=== PATIENT | female | born 1985 | race Caucasian/White ===

== ENCOUNTER 2024-04-02 20:55 | Emergency (ER) | payer BC, SELFPAY ==
[2024-04-02 20:58] VITALS: BP 129/76
[2024-04-02 21:14] LABS: % Basophils 0.6 % (0-2); % Eosinophils 1.6 % (0-6); % Immature Granulocytes 0.3 % (0-0.5); % Lymphocytes 38.6 % (20.5-51.1); % Monocytes 6.2 % (1.7-9.3); % Neutrophils 52.7 % (42.2-75.2); Absolute Basophils 0.1 10^3/uL (0-0.2); Absolute Eosinophils 0.2 10^3/uL (0-0.7); Absolute Lymphocytes 3.6 10^3/uL (1.2-3.4); Absolute Monocytes 0.6 10^3/uL (0.1-0.6); Hematocrit 36.7 % (37.0-47.0); Hemoglobin 12.5 g/dL (12.0-16.0); Mean Corp Hgb Conc. 34.1 g/dL (33.0-37.0); Mean Corpuscular Hgb 29.2 pg (27.0-31.0); Mean Corpuscular Volume 85.7 fL (81.0-99.0); Mean Platelet Volume 9.9 fL (7.4-10.4); Nucleated Red Blood Cells % 0 %; Platelet Count 274 10^3/uL (130-400); Red Blood Cell Count 4.28 10^6/uL (4.20-5.40); Red Cell Dist. Width 13.2 % (11.5-14.5); White Blood Cell Count 9.4 10^3/uL (4.8-10.8)
[2024-04-02 21:32] LABS: ALT (SGPT) 24 U/L (0-35); AST (SGOT) 24 U/L (14-36); Albumin 4.7 g/dl (3.5-5.0); Alkaline Phosphatase 49 U/L (38-126); Blood Urea Nitrogen 12 mg/dl (7-17); Calcium 9.9 mg/dl (8.4-10.2); Carbon Dioxide 26 mmol/L (22-30); Chloride 102 mmol/L (98-107); Glucose 127 mg/dl (70-99); Potassium 3.9 mmol/L (3.5-5.1); Sodium 140 mmol/L (135-145); Total Bilirubin 0.6 mg/dl (0.2-1.3); Total Protein 7.2 g/dl (6.3-8.2); eGFR > 60.00
[2024-04-02 21:39] VITALS: BP 105/71
[2024-04-02 21:42] VITALS: BMI 22.4
[2024-04-02 22:00] VITALS: BP 115/83
--- NOTE | 2024-04-02 22:58 | ED.GENMED ---
History of Present Illness
<Ines Gomez MD, Resident - Last Filed: 04/03/24 02:37>
General
Chief Complaint: Dizziness
Source: patient
Exam Limitations: none
Time Seen by Provider: 04/02/24 22:20
Nursing documentation reviewed up to this point in time: agreed with
History of Present Illness
History of Present Illness:
38-year-old female with history of IBS, prothrombin gene mutation, hyperactive gallbladder, alpha 1 antitrypsin deficiency, interstitial cystitis, osteoarthritis of spine, chronic rhinosinusitis, depression/anxiety, who presents to the ED c/o
worsening vertigo x 10 days, starting a few days after being on a plane. She describes as sensation of objects in the room moving. Symptoms are constant. She took Bonine (meclizine) yesterday with made vertigo symptoms worse. Remote history of
vertigo in her 20s usually lasting about 10 minutes at a time and resolving without treatment, about once a month, for about a year.
Reports some difficulty with concentration at work and mild phonophobia.
Denies chest pain, palpitations, shortness of breath, fever, chills, sweats, recent illness, nausea/vomiting, weakness, numbness/tingling, visual changes or photophobia. Denies falling to 1 side versus the other.
Past History
<Ines Gomez MD, Resident - Last Filed: 04/03/24 02:37>
Past History
ED Past Medical History: Asthma, Psychiatric (anxiety, depression) and Other (GUPTA, Prothrombin disorder, IBS, hyperactive gallbladder, alpha-1 antitrypsin deficiency, interstitial cystitis, osteoarthritis of spine, chronic rhinosinusitis)
ED Past Surgical History: Gynecological (LEEP), Tonsilectomy and Other (Diasthesis recti repair, Sinus Surgery, wisdom teeth)
Patient has exhibited threatening behavior?: No
Social History
Tobacco: Non-smoker
Alcohol: None
Drug: None
Personal:
Living: with family
Employment: Employed
Family History
Family History: Hypertension and Cancer (pancreatic, liver)
Review of Systems
<Ines Gomez MD, Resident - Last Filed: 04/03/24 02:37>
Review of Systems
Allergies reviewed?: Yes
All Other Systems: ROS reviewed and negative except as documented in HPI and ROS
Phy Exam
<Ines Gomez MD, Resident - Last Filed: 04/03/24 02:37>
General Physical Exam
General Presentation: well appearing and no apparent distress
General Skin: warm and dry
General Habitus: normal
General Mental: alert
General Hydration: appears well hydrated
ENT Exam
ENT Exam: EOMI
Eye Exam
Eye Exam: PERRL and EOMI
Cardiovascular Exam
Cardiovascular Exam: regular rate/rhythm, no gallop and no murmur
Pulmonary Exam
Pulmonary Exam: lungs clear, no respiratory distress, no rales, no crackles, no rhonchi and no wheezing
Gastrointestinal Exam
Gastrointestinal Exam: normal bowel sounds, non tender, soft, no organomegaly, non distended and no cva tenderness
Neurological Exam
Neurological Exam: alert, oriented x3, no motor deficits, no sensory deficits, speech normal and other (negative finger to nose)
Course
<Ines Gomez MD, Resident - Last Filed: 04/03/24 02:37>
Orders/Labs/Results
Orders:
Orders
04/02/24 21:00
Electrocardiogram (*1) Urgent
Reason for Study: Vertigo / Dizzy
CT Head W/o Iv Contrast Urgent
Comment:
Reason For Exam: dizziness
04/02/24 21:01
EKG- Treatment ONCE
04/02/24 21:06
Complete Blood Count/With Diff Urgent
Comprehensive Metabolic Panel Urgent
04/02/24 22:59
diazePAM [Valium Injection] 5 mg IV NOW STA
04/02/24 23:42
Test Result ONCE
04/02/24 23:46
HCG, Urine Qualitative Screen Urgent
Date Specimen was Collected: 04/02/24
Time Specimen was Collected: 23:44
04/03/24 01:26
Dexamethasone Sod Phosphate [Decadron] 10 mg IV NOW STA
Abnormal Lab Results
04/02/24
21:06
Hct 36.7 L %
(37.0-47.0)
Absolute Lymphs (auto) 3.6 H 10^3/uL
(1.2-3.4)
Glucose 127 H mg/dl
(70-99)
04/02/24 21:06
04/02/24 21:06
Vital Signs
Initial and Last Documented VS:
Initial Vital Signs
Temp Pulse Resp BP Pulse Ox
98.1 F 79 20 129/76 98
04/02/24 20:58 04/02/24 20:58 04/02/24 20:58 04/02/24 20:58 04/02/24 20:58
Last Documented Vital Signs
Temp Pulse Resp BP Pulse Ox
98.1 F 63 16 100/75 98
04/02/24 20:58 04/03/24 01:45 04/03/24 01:45 04/03/24 01:00 04/03/24 01:45
<Jed Harmon, DO - Last Filed: 04/03/24 00:17>
Orders/Labs/Results
Orders:
Orders
04/02/24 21:00
Electrocardiogram (*1) Urgent
Reason for Study: Vertigo / Dizzy
CT Head W/o Iv Contrast Urgent
Comment:
Reason For Exam: dizziness
04/02/24 21:01
EKG- Treatment ONCE
04/02/24 21:06
Complete Blood Count/With Diff Urgent
Comprehensive Metabolic Panel Urgent
04/02/24 22:59
diazePAM [Valium Injection] 5 mg IV NOW STA
04/02/24 23:42
Test Result ONCE
04/02/24 23:46
HCG, Urine Qualitative Screen Urgent
Date Specimen was Collected: 04/02/24
Time Specimen was Collected: 23:44
04/03/24 01:26
Dexamethasone Sod Phosphate [Decadron] 10 mg IV NOW STA
Abnormal Lab Results
04/02/24
21:06
Hct 36.7 L %
(37.0-47.0)
Absolute Lymphs (auto) 3.6 H 10^3/uL
(1.2-3.4)
Glucose 127 H mg/dl
(70-99)
04/02/24 21:06
04/02/24 21:06
Vital Signs
Initial and Last Documented VS:
Initial Vital Signs
Temp Pulse Resp BP Pulse Ox
98.1 F 79 20 129/76 98
04/02/24 20:58 04/02/24 20:58 04/02/24 20:58 04/02/24 20:58 04/02/24 20:58
Last Documented Vital Signs
Temp Pulse Resp BP Pulse Ox
98.1 F 63 16 100/75 98
04/02/24 20:58 04/03/24 01:45 04/03/24 01:45 04/03/24 01:00 04/03/24 01:45
Moelt;Ines Gomez MD, Resident - Last Filed: 04/03/24 02:37>
MDM/Problems Addressed
Differential Diagnosis Includes:
Vertigo, dizziness
MDM/Problems Addressed:
Well-appearing patient. History and physical suggest vertigo. EKG, CT head without contrast, chemistry all normal. CBC unremarkable. Froilan-Hallpike maneuver positive for markedly increased symptoms on the right, no nystagmus noted. Will give
Diazepam 5mg and reassess shortly.
Update: Pt reports unchanged symptoms. Will give one dose of IV decadron and reassess shortly.
Update: Patient reports improved symptoms. Well-appearing and stable for discharge. Will discharge with Medrol dose lucía. Referral script provided for physical therapy for Vertigo. F/U with PCP shortly. Can follow up with neurologist for finding of
mild Chiari I malformation on otherwise normal head CT.
<Ines Gomez MD, Resident - Last Filed: 04/03/24 02:37>
*Critical Care Note
Total Time (30-74mins, 75-104mins- exclusive of procedures): Not Applicable
ED Attending Note
<Ines Gomez MD, Resident - Last Filed: 04/03/24 02:37>
-
Portions of this chart may have been created with voice recognition software.� Occasional wrong word or��sound alike� substitutions may have occurred due to the inherent limitations of voice recognition software.
<Jed Harmon, DO - Last Filed: 04/03/24 00:17>
ED Attending Note
Patient seen and examined by attending physician: Yes
I performed a history and physical exam of patient and discussed management with resident, I reviewed resident's note and agree with documented findings and plan of care.: Yes
ED Attending Note:
Seen with resident and examined independently 38-year-old female intermittent vertigo
Symptoms started after playing tripped, here she appears well normal [id number] no facial palsy, symptoms are worse with Froilan-Hallpike
Discharge Plan
Departure
Patient Disposition: Home (Routine Discharge)
Date of Disposition: 04/03/24
Time of Disposition: 02:35
Patient with high blood pressure during this ER visit?: No
Discharge Problem:
Vertigo
Instructions: Vertigo (a Type of Dizziness) (DC), Chiari Malformation (DC)
Prescriptions:
New
methylprednisolone [Methylpred DP] 4 mg Tablets,Dose Pack
See Rx Instructions .ROUTE .COMPLEX Qty: 21 0RF
Rx Instructions:
orally per package directions
Referrals:
Dilan Dallas MD [Active] -
Juan Evans DO [Family Provider] -
Activity Restrictions/Additional Instructions:
F/U with PCP
Mild chiari 1 malformation seen on head CT. Can F/U with neurologist Dr. Dilan Dallas.
F/U with physical therapy, Call [facility] [phone]
Interventions
Interventions:
*Risk Screen - Suicide Last Done: 04/02/24 21:42
*General Assessment Last Done: 04/02/24 20:58
*Neglect/Abuse Screening Last Done: 04/02/24 21:42
ED- Fall Risk Assessment Last Done: 04/02/24 21:42
*ED COVID-19 Vaccine History Last Done: 04/02/24 21:42
ED- Neurological Assessment Last Done: 04/02/24 21:44
ED- Cardiac Assessment Last Done: 04/02/24 22:17
Discharge Date and Time
Print Language: CUBAN
[2024-04-02 23:00] VITALS: BP 106/78
[2024-04-02] MEDS: VALIUM INJECTION 5 MG IV (23:56)
[2024-04-03 00:06] VITALS: BP 109/75
[2024-04-03 00:15] LABS: HCG, Urine Qualitative Screen Negative
[2024-04-03 01:00] VITALS: BP 100/75
[2024-04-03] MEDS: DECADRON 10 MG IV (01:36)
[2024-04-03 02:00] VITALS: BP 101/71
[2024-04-03 02:53] VITALS: BP 97/70
== END 2024-04-03 03:25 | disposition home or self-care (01) ==
LOC: EMR 20:55
PROVIDERS: EMERGENCY PHYSICIAN Emergency Medicine; FAMILY PHYSICIAN Family Medicine
DX: R42 Dizziness and giddiness (principal); K58.9 Irritable bowel syndrome, unspecified; D68.52 Prothrombin gene mutation; E88.01 Alpha-1-antitrypsin deficiency; F41.8 Other specified anxiety disorders; K75.81 Nonalcoholic steatohepatitis (NASH); G93.5 Compression of brain; J45.909 Unspecified asthma, uncomplicated; Z80.0 Family history of malignant neoplasm of digestive organs; Z82.49 Family history of ischemic heart disease and other diseases of the circulatory system
CPT/HCPCS: 99284; 96374; 96375; 70450; 80053; 81025; 85025; 93005

== ENCOUNTER 2024-04-27 14:54 | Outpatient (RCR) | payer BC, SELFPAY | END 2024-05-17 14:03 | disposition home or self-care (01) | LOC: RPT 14:54 | PROVIDERS: ATTENDING PHYSICIAN Family Medicine | DX: H81.399 Other peripheral vertigo, unspecified ear (principal); Z73.6 Limitation of activities due to disability | CPT/HCPCS: 97163 ==